=== PATIENT | male | born 1985 | race Caucasian/White ===

== ENCOUNTER 2021-09-08 12:36 | Emergency (ER) | payer OTHER ==
[~2021-09-08] VITALS: Ht 162.6 cm; Wt 71.7 kg
--- NOTE | 2021-09-08 12:59 | NUR ---
PT BIBS C/O RT LWR ABDOMINAL PAIN SINCE YESTERDAY P/S 02/12. DENIES TAKING ANY PAIN MEDS. PT A/OX4. TOLERATING R/A WELL WITH NO SOB. CONNECTED PT TO MONITOR AND POX
--- NOTE | 2021-09-08 13:09 | NUR ---
URINE COLLECTED AND SENT TO LAB
[2021-09-08] MEDS ORDERED: FAMOTIDINE/PF INJ 20 MG/2 ML VIAL IV ONE ×2 (14:00→14:04)
[2021-09-08] MEDS ORDERED: METOCLOPRAMIDE HCL 10 MG/2 ML VIAL IV ONE (14:00)
[2021-09-08] MEDS ORDERED: MAG HYDROX/AL HYDROX/SIMETH 30 ML UDC PO ONE (14:00)
[2021-09-08] MEDS ORDERED: METOCLOPRAMIDE HCL 10 MG/2 ML VIAL ONE (14:03)
[2021-09-08] MEDS ORDERED: MAG HYDROX/AL HYDROX/SIMETH 30 ML UDC ONE (14:03)
[2021-09-08] MEDS ORDERED: KETOROLAC TROMETHAMINE INJ 30 MG/ML VIAL ONE (14:42)
--- NOTE | 2021-09-08 14:50 | NUR ---
R HAND #20G S/L; PATENT AND INTACT. BLOOD COLLECTED AND GIVEN TO LAB. IVF NS 1000ML INFUSING ORDERED
--- NOTE | 2021-09-08 14:55 | NUR ---
PT TAKEN TO CT VIA W/C
--- NOTE | 2021-09-08 14:59 | NUR ---
PT RETURNED TO ER BED 6 VIA W/C
[2021-09-08] MEDS ORDERED: KETOROLAC TROMETHAMINE INJ 30 MG/ML VIAL IV ONE (15:00)
[2021-09-08] MEDS ORDERED: IV NS 0.9% 1,000 ML BAG IV ONE (15:00)
[2021-09-08 15:19] LABS: BASOPHILS % (AUTO) 0.6 % (0.0-2.0); EOSINOPHILS % (AUTO) 0.5 % (0.0-6.0); HEMATOCRIT 41 % (39-51); HEMOGLOBIN 13.9 g/dL (13.5-17.5); LYMPHOCYTES # (AUTO) 2.9 K/uL (0.8-4.8); LYMPHOCYTES % (AUTO) 39.5 % (20.0-44.0); MEAN CORPUSCULAR HGB CONC 34 g/dl (31.0-36.0); MEAN CORPUSCULAR VOLUME 90 fL (80-96); MONOCYTES # (AUTO) 0.6 K/uL (0.1-1.30); MONOCYTES % (AUTO) 8.5 % (2.0-12.0); NEUTROPHILS # (AUTO) 3.7 K/uL (1.8-8.9); NEUTROPHILS % (AUTO) 50.9 % (43.0-81.0); PLATELET COUNT (AUTO) 291 K/uL (150-450); RED BLOOD CELL COUNT(AUTO) 4.59 MIL/uL (4.5-6.0); WHITE BLOOD COUNT (AUTO) 7.3 K/uL (4.3-11.0)
[2021-09-08 15:46] LABS: CALCIUM, SERUM 8.8 mg/dL (8.5-10.1); CREATININE 0.9 mg/dL (0.6-1.3); POTASSIUM 4.5 mmol/L (3.5-5.1)
[2021-09-08 15:57] LABS: BILIRUBIN,DIRECT 0.1 mg/dL (0.0-0.2); BILIRUBIN,TOTAL 0.9 mg/dL (0.2-1.0)
[2021-09-08 15:58] LABS: ALBUMIN 4.1 g/dL (3.4-5.0)
[2021-09-08] MEDS ORDERED: IBUP-1957 PO (17:11)
[2021-09-08] MEDS ORDERED: HYDR-3972 PO (17:11)
[2021-09-08] MEDS ORDERED: AMOX-430 PO (17:11)
--- NOTE | 2021-09-08 17:22 | NUR ---
IV removed. Catheter intact and site benign. Pressure and 4x4 applied to site. No bleeding noted.Patient discharged to home in stable condition. Written and verbal after care instructions given. Patient verbalizes understanding of instruction.
[2021-09-08 17:23] VITALS: BP 112/65
== END 2021-09-08 17:24 | disposition home or self-care (01) ==
LOC: ER 12:39
DX: K63.89 Other specified diseases of intestine (principal)
CPT/HCPCS: 36415; 74176; 80048; 80076; 83690; 85025; 96361; 96374; 96375; 99284; J1885; J2765; J3490; J7030